=== PATIENT | female | born 1990 | race Caucasian/White ===

== ENCOUNTER 2017-09-21 12:47 | Emergency (ER) | payer OTHER ==
[2017-09-21] MEDS: ONDANSETRON (ODT) 4 MG TAB ODT (13:52)
[2017-09-21] MEDS: LIDOCAINE 1% (MDV) 20 ML INJ SC (13:52)
[2017-09-21] MEDS: HYDROCODONE/APAP (10/325) TAB PO (13:52)
== END 2017-09-21 15:11 | disposition home or self-care (01) ==
LOC: FTE 12:47
DX: N75.1 Abscess of Bartholin's gland (principal)
CPT/HCPCS: 56420; 99284-25